=== PATIENT | female | born 1980 | race African-American/Black ===

== ENCOUNTER 2019-04-25 15:05 | Emergency (ER) | payer OTHER ==
--- NOTE | 2019-04-25 15:27 | ER Document Report ---
HPI - HPI Patient complains to provider of: Sore throat Time Seen by Provider: 04/25/19 15:15 Onset: Other Onset/Duration: Sudden Quality of pain: No pain Context: 38-year-old female presents emergency department with complaints of sore throat for the last couple days and possible conjunctivitis. Reports everybody in our office has pinkeye. She denies discharge from her eyes no erythema denies irritation. She also complains of sore throat. Denies fever vomiting diarrhea. No known exposure to strep. Associated Symptoms: Sore throat Exacerbated by: Denies Relieved by: Denies Similar symptoms previously: No Recently seen / treated by doctor: No Past Medical History - General Information source: Patient Last Menstrual Period: iud DEC - Social History Smoking Status: Unknown if Ever Smoked Frequency of alcohol use: Occasional Drug Abuse: None Occupation: [employer] Lives with: Family Family History: None Patient has suicidal ideation: No Patient has homicidal ideation: No - Medical History Medical History: Negative Surgical Hx: Negative Vertical Provider Document - CONSTITUTIONAL Agree With Documented VS: Yes Exam Limitations: No Limitations General Appearance: WD/WN, No Apparent Distress - HEENT HEENT: Atraumatic, Normocephalic, PERRLA, Pharyngeal Erythema - Good airway clear voice opens mouth wide no trismus. negative: Conjuctival Injection, Pharyngeal Exudate, Tympanic Membrane Red - NECK Neck: Normal Inspection, Supple - RESPIRATORY Respiratory: Breath Sounds Normal, No Respiratory Distress - CARDIOVASCULAR Cardiovascular: Regular Rate, Regular Rhythm - GI/ABDOMEN Gastrointestinal: Abdomen Soft, Abdomen Non-Tender - MUSCULOSKELETAL/EXTREMETIES Musculoskeletal/Extremeties: MAEW, FROM - NEURO Level of Consciousness: Awake, Alert, Appropriate Motor/Sensory: No Motor Deficit - DERM Integumentary: Warm, Dry Course - Re-evaluation Re-evalutation: 04/25/19 15:24 38-year-old healthy female presents with concerns over a possible bacterial conjunctivitis exposure and sore throat. Denies exposure to strep. Reports everybody in our office has pinkeye. Patient has no symptoms of pinkeye. No erythema no drainage. She denies irritation to the eyes. Strep TEST ordered 04/25/19 16:29 Laboratory 04/25/19 15:20 Group A Strep Rapid NEGATIVE Strep test negative. Patient was instructed on throat culture pending. Instructed on good handwashing monitor for signs of bacterial conjunctivitis and return for any concerns she verbalized understanding to all instructions. Discharge - Discharge Clinical Impression: Sore throat Condition: Stable Disposition: HOME, SELF-CARE Instructions: Sore Throat ([facility]) Additional Instructions: *You have been evaluated for a sore throat, , bacterial conjunctivitis exposure *Your strep test was negative. A throat culture is pending. You may be contacted in 3 to 4 days should you need antibiotics. * In the meantime gargle with warm salt water and suck on throat lozenges for comfort *Good hand washing -do not reuse wash cloth towels after wiping *Do not let anyone drink/eat after you *Follow-up with a primary care provider within 1 week for recheck *Return to ED for worsening condition change, needs
[2019-04-25 15:47] VITALS: BP 127/79
== END 2019-04-25 16:42 | disposition home or self-care (01) ==
LOC: ER 15:05
DX: J02.9 Acute pharyngitis, unspecified (principal)
CPT/HCPCS: 87070; 87880; 99283